=== PATIENT | female | born 1960 | race Caucasian/White ===

== ENCOUNTER 2023-10-11 15:16 | Emergency (ER) | payer SELFPAY ==
[2023-10-11] MEDS ORDERED: TDAP (DIPHTH,PERTUSS(ACELL),TET VAC) 0.5 ML VIAL IMVAC ONE (16:10)
[2023-10-11 16:38] LABS: Absolute Basophils 0.1 K/uL (0-0.5); Absolute Lymphocytes (CBC) 1.8 K/uL (0.7-4.9); Absolute Monocytes 0.5 K/uL (0.1-1.3); Absolute Neutrophil 4.7 K/uL (1.8-8.0); Basophils % 0.9 % (0-1.3); Eosinophils % 0.6 % (0-4.4); Hematocrit 47.3 % (36.0-45.0); Hemoglobin 14.9 g/dL (12.0-15.0); Lymphocytes % 24.9 % (15.3-44.8); MCH 27.5 pg (27.0-35.0); MCHC 31.5 g/dL (32.0-36.0); MCV 87.4 fL (80-100); MPV 10.8 fL (7.6-11.3); Monocytes % 6.5 % (3.3-12.3); Neutrophils % 67.1 % (41.7-73.7); Platelets 192 thou/uL (152-406); RBC Red Blood Cell Count 5.42 M/uL (3.86-4.86)
[2023-10-11 16:41] LABS: PT Prothrombin Time 10.9 SECONDS (9.4-12.5); Protime INR 0.97
--- NOTE | 2023-10-11 16:55 | RAD REPORT ---
EXAM DESCRIPTION: [place] Single View10/11/2023 4:45 pm CLINICAL HISTORY: Chest pain COMPARISON: none FINDINGS: The lungs appear clear of acute infiltrate. The heart is normal size IMPRESSION: No acute abnormalities displayed
[2023-10-11 16:57] LABS: ALT/SGPT 41 U/L (13-56); AST/SGOT 22 U/L (15-37); Albumin 3.1 g/dL (3.4-5.0); Albumin/Globulin Ratio 0.9 (1.1-1.8); Alkaline Phosphatase 91 U/L (45-117); Anion Gap 10.9 mEq/L (5.0-15.0); BUN Blood Urea Nitrogen 8 mg/dL (7-18); Bicarbonate 25 mEq/L (21-32); Bilirubin Total 0.4 mg/dL (0.2-1.0); Globulin 3.6 g/dL (2.3-3.5); Glomerular Filtration Rate 84 ml/min (=/>90); Glucose Level 315 mg/dL (74-106); Magnesium 1.9 mg/dL (1.6-2.4); NT PRO-BNP 122 pg/mL (<125); Potassium 3.9 mEq/L (3.5-5.1); Protein, Total 6.7 g/dL (6.4-8.2); Sodium Level 137 mEq/L (136-145); Troponin High Sensitivity 5.6 pg/mL (<58.9)
[2023-10-11 17:00] LABS: Bilirubin Direct < 0.2 mg/dL (0-0.2); Bilirubin Indirect, Calculated 0.2 mg/dL (0.2-0.8)
--- NOTE | 2023-10-11 17:41 | RAD REPORT ---
EXAM DESCRIPTION: CT - Head C Spine Mpr Wo Con - 10/11/2023 4:51 pm CLINICAL HISTORY: Left sided weakness. Tremors COMPARISON: None. TECHNIQUE: Computed axial tomography of the head and cervical spine was obtained. Sagittal and coronal reconstruction was performed. All CT scans are performed using dose optimization technique as appropriate and may include automated exposure control or mA/KV adjustment according to patient size. FINDINGS: An intracranial bleed is not seen. The ventricles are normal in caliber. 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 Corpus callosum is not we ll visualized which could be secondary to hypoplasia No significant hypodensity within the brain. An extra-axial fluid collection is not noted. Fluid within the visualized sinuses and mastoids is not seen Evaluation of the mid cervical spine extremely limited secondary to motion artifact No fracture visualized. Spondylosis C4-5 not well evaluated secondary to patient motion artifact Prominent disc osteophyte complex C5-6 results in compression upon the right aspect spinal cord. Stefano ed narrowing of the neural foramina bilaterally Prominent disc osteophyte complex C6-7 narrows thecal sac to 6 millimeters. IMPRESSION: No acute intracranial abnormality is seen. A cervical fracture is not visualized. 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 Further evaluation with nonemergent MRI may be helpful for further evaluation
--- NOTE | 2023-10-11 18:43 | ER ---
Nurse's Notes [facility] Name: Karyna Adames Age: 63 yrs Sex: Female : 1960 Arrival Date: 10/11/2023 Time: 15:16 Bed 8 Private MD: Diagnosis: Cervical disc disorder with radiculopathy;Weakness-Left Arm and Left Leg;Tremor, unspecified;Leg Laceration/ Open wound of lower leg;Hyperglycemia, unspecified Presentation: 10/10 15:25 Chief complaint: Patient states: stepped on a chainsaw 09/26/24 and did not receive a tm6 tetanus shot on the right foot. Now left foot swollen and painful, has tremors and can't put weight on it. Left sided weakness x1 week. Ebola Screen: Patient negative for fever greater than or equal to 101.5 degrees Fahrenheit, and additional compatible Ebola Virus Disease symptoms Patient denies exposure to infectious person. Patient denies travel to an Ebola-affected area in the 21 days before illness onset. No symptoms or risks identified at this time. Risk Assessment: Do you want to hurt yourself or someone else? Patient reports no desire to harm self or others. 15:25 Method Of Arrival: Wheelchair tm6 15:25 Acuity: MERYL 3 tm6 15:27 Chief complaint:. tm6 15:27 Coronavirus screen: Vaccine status: Patient reports receiving the 2nd dose of the covid tm6 vaccine. Initial Sepsis Screen: Does the patient meet any 2 criteria? No. Patient's initial sepsis screen is negative. Does the patient have a suspected source of infection? No. Patient's initial sepsis screen is negative. Onset of symptoms was September 27, 2023. Triage Assessment: 15:33 General: Appears in no apparent distress. Behavior is calm, cooperative. Pain: tm6 Complains of pain in left foot Pain currently is 0 out of 10 on a pain scale. at worst was 8 out of 10 on a pain scale. Is intermittent. EENT: No signs and/or symptoms were reported regarding the EENT system. Neuro: Level of Consciousness is awake, alert, obeys commands, Oriented to person, place, time, situation, Reports weakness in left arm and left leg since 1-2 weeks ago. Cardiovascular: Patient's skin is warm and dry. Respiratory: Airway is patent Respiratory effort is even, unlabored, Respiratory pattern is regular, symmetrical. GI: No signs and/or symptoms were reported involving the gastrointestinal system. Abdomen is round non-distended. : No signs and/or symptoms were reported regarding the genitourinary system. Derm: No signs and/or symptoms reported regarding the dermatologic system. Musculoskeletal: Reports weakness in left arm and left leg pain in left foot. Historical: - Allergies: 15:33 No Known Allergies; tm6 - PMHx: 15:33 None; tm6 - PSHx: 15:33 tubal ligation; tm6 - Immunization history:: Client reports receiving the 2nd dose of the Covid vaccine. - Infectious Disease History:: Denies. - Social history:: Smoking status: Patient reports the use of cigarette tobacco products, smokes one-half pack cigarettes per day, Patient/guardian denies using alcohol. Screenin:33 [facility] ED Fall Risk Assessment (Adult) History of falling in the last 3 months, db including since admission No falls in past 3 months (0 pts) Confusion or Disorientation No (0 pts) Intoxicated or Sedated No (0 pts) Impaired Gait No (0 pts) Mobility Assist Device Used No (0 pt) Altered Elimination No (0 pt) Score/Fall Risk Level 0 - 2 = Low Risk Oriented to surroundings, Maintained a safe environment. Abuse screen: Denies threats or abuse. Denies injuries from another. Nutritional screening: No deficits noted. Tuberculosis screening: No symptoms or risk factors identified. Assessment: 16:20 Reassessment: Patient appears in no apparent distress at this time. Patient and/or db family updated on plan of care and expected duration. Pain level reassessed. Patient is alert, oriented x 3, equal unlabored respirations, skin warm/dry/pink. RIGHT LEG WOUND. General: Appears in no apparent distress. comfortable, Behavior is calm, cooperative. Pain: Complains of pain in right leg and left leg. Neuro: Level of Consciousness is awake, alert, obeys commands, Oriented to person, place, time, situation. Respiratory: Airway is patent Respiratory effort is even, unlabored, Respiratory pattern is regular, symmetrical. 18:30 Reassessment: Patient appears in no apparent distress at this time. Patient and/or db family updated on plan of care and expected duration. Pain level reassessed. Patient is alert, oriented x 3, equal unlabored respirations, skin warm/dry/pink. Patient states feeling better. Patient states symptoms have improved. Vital Signs: 15:27 BP 157 / 101; Pulse 87; Resp 19; Temp 98.4(TE); Pulse Ox 99% on R/A; Weight 113.4 kg; tm6 Height 5 ft. 5 in. ; Pain 0/10; 18:36 BP 184 / 86; Pulse 82; Resp 16; Pulse Ox 99% on R/A; db 15:27 Body Mass Index 41.60 (113.40 kg, 165.1 cm) tm6 15:27 Pain Scale: Adult tm6 ED Course: 15:19 Patient arrived in ED. mr 15:21 Ashkan Nieves PA is PHCP. cp 15:21 Carlos Dc MD is Attending Physician. cp 15:26 Triage completed. tm6 15:33 Arm band placed on right wrist. tm6 16:22 EKG done. db 16:28 Initial lab(s) drawn, by me, sent to lab. Inserted saline lock: 20 gauge in right db antecubital area, using aseptic technique. Blood collected. Flushed with 10 mL NS. 16:47 XRAY Chest (1 view) In Process Unspecified. EDMS 16:53 CT Head C Spine In Process Unspecified. EDMS 18:41 Hany Young MD is Referral Physician. cp 19:03 Yeimi Denny, RN is Primary Nurse. db 19:05 Patient has correct armband on for positive identification. Bed in low position. Call db light in reach. Side rails up X 1. Provided Education on: DISCHARGE. personnel monitor on. Pulse ox on. NIBP on. Warm blanket given. Pillow given. 19:05 No provider procedures requiring assistance completed. IV discontinued, intact, db bleeding controlled, No redness/swelling at site. Administered Medications: 16:24 Drug: Boostrix Tdap IM 0.5 ml IM once; as a single dose Route: IM; Site: right deltoid; db 18:30 Follow up: Response: (VIS) Vaccine information sheet provided today. Questions and/or db concerns addressed. VIS edition date: Sep 17, 2020.; No adverse reaction Medication: 19:05 Vaccine Information Statement (VIS) provided today. Questions and/or concerns db addressed. VIS edition date: September 17, 2020. Outcome: 18:43 Discharge ordered by . cp 19:05 Discharged to home via wheelchair, with family, db 19:05 Condition: stable 19:05 Discharge instructions given to patient, Instructed on discharge instructions, follow up and referral plans. Prescriptions given X 3, 19:07 Patient left the ED. db Signatures: Dispatcher [employer] EDMS Hanane Hernadez, Reg Reg mr Ashkan Nieves, Yeimi Teran cp, RN RN Luis E Linda RN RN tm6 Corrections: (The following items were deleted from the chart) 15:28 15:25 Chief complaint: Patient states: stepped on a chainsaw and did not receive a tm6 tetanus shot. Left foot swollen and painful tm6
--- NOTE | 2023-10-11 18:43 | EDPHYS ---
Physician Documentation [facility] Name: Karyna Adames Age: 63 yrs Sex: Female : 1960 Arrival Date: 10/11/2023 Time: 15:16 Bed 8 Private MD: ED Physician Carlos Dc HPI: 10/10 15:35 This 63 yrs old Female presents to ER via Wheelchair with complaints of Left Side of cp Body Weakness. 15:35 The patient's problem is reported as weakness, in the left upper extremity, in the left cp lower extremity, tremor of left leg. Onset: The symptoms/episode began/occurred 10 day(s) ago. 15:35 Associated signs and symptoms: Pertinent negatives: abdominal pain, chest pain, cp headache, numbness, palpitations. Patient's baseline: Neuro: alert and fully oriented, Motor: no deficits, Ambulation: walks without assistance, Speech: normal. 15:35 Patient is a 63-year-old female who presents to emergency department and reports that cp about 2 weeks ago she fell onto a chainsaw causing a wound to her right lower leg and right foot. She subsequently followed up with her family physician and was not given a tetanus shot as she was also seen in the emergency department. reports about 3 days later after the injury she complained of left side weakness. She presents today with complaints of left arm weakness and trembling of her left leg. She denies any numbness. Historical: - Allergies: 15:33 No Known Allergies; tm6 - PMHx: 15:33 None; tm6 - PSHx: 15:33 tubal ligation; tm6 - Immunization history:: Client reports receiving the 2nd dose of the Covid vaccine. - Infectious Disease History:: Denies. - Social history:: Smoking status: Patient reports the use of cigarette tobacco products, smokes one-half pack cigarettes per day, Patient/guardian denies using alcohol. ROS: 15:40 Cardiovascular: Negative for chest pain, edema, palpitations, cp 15:40 Constitutional: HX per HPI cp 15:40 Constitutional: Negative for body aches, chills, fever, poor PO intake, 15:40 Respiratory: Negative for cough, shortness of breath, wheezing, 15:40 Abdomen/GI: Negative for abdominal pain, nausea, vomiting, and diarrhea, 15:40 Neuro: Positive for weakness, Negative for altered mental status, 15:40 All other systems are negative, cp Exam: 15:45 Constitutional: The patient appears in no acute distress, alert, awake, cp non-diaphoretic, non-toxic, well developed, well nourished, anxious, 15:45 Head/Face: Normocephalic, atraumatic. cp 15:45 Eyes: Periorbital structures: appear normal, Pupils: equal, round, and reactive to light and accomodation, Extraocular movements: intact throughout, Conjunctiva: normal, no exudate, no injection, Sclera: no appreciated abnormality, Lids and lashes: appear normal, bilaterally, 15:45 ENT: External ear(s): are unremarkable, Nose: is normal, Mouth: Lips: moist, Oral mucosa: moist, Posterior pharynx: Airway: no evidence of obstruction, patent, 15:45 Neck: ROM/movement: pain, that is mild, with any movement, limited range of motion, is not appreciated, 15:45 Chest/axilla: Inspection: normal, Palpation: is normal, no crepitus, no tenderness, 15:45 Cardiovascular: Rate: normal, Rhythm: regular, Edema: is not appreciated, JVD: is not appreciated, 15:45 Respiratory: the patient does not display signs of respiratory distress, Respirations: normal, no use of accessory muscles, no retractions, labored breathing, is not present, Breath sounds: are clear throughout, no decreased breath sounds, no stridor, no wheezing, 15:45 Abdomen/GI: Exam negative for discomfort, distension, guarding, Inspection: abdomen appears normal, 15:45 Back: pain, is absent, ROM is normal, 15:45 Neuro: Orientation: to person, place \T\ time. Mentation: is normal, Motor: moves all fours, no focal deficits, Sensation: no obvious gross deficits, 16:27 ECG was reviewed by the Attending Physician. cp 18:30 Radiologist reports: report reviewed cp Vital Signs: 15:27 BP 157 / 101; Pulse 87; Resp 19; Temp 98.4(TE); Pulse Ox 99% on R/A; Weight 113.4 kg; tm6 Height 5 ft. 5 in. ; Pain 0/10; 18:36 BP 184 / 86; Pulse 82; Resp 16; Pulse Ox 99% on R/A; db 15:27 Body Mass Index 41.60 (113.40 kg, 165.1 cm) tm6 15:27 Pain Scale: Adult tm6 MDM: 15:37 Patient medically screened. 18:42 Data reviewed: vital signs, nurses notes, lab test result(s), EKG, radiologic studies, cp CT scan, I have discussed the patient's presentation/case with the attending Emergency Department Physician;. 18:42 Counseling: I had a detailed discussion with the patient and/or guardian regarding the cp historical points, exam findings, and any diagnostic results supporting the discharge/admit diagnosis, lab results, radiology results, the need to transfer to another facility, [facility] does not immediately have the required specialist. Refusal of service: The patient/guardian displays adequate decision making capability and despite a detailed discussion of alternatives, benefits, risks, and consequences refuses: transfer for neurosurgery evaluation. patient requesting discharge to f/u outpatient. 10/10 15:33 Order name: Basic Metabolic Panel; Complete Time: 17:02 10/10 17:02 Interpretation: Normal except: GLUC 315; GFR 84. 10/10 15:33 Order name: CBC with Diff; Complete Time: 17:02 10/10 17:02 Interpretation: Normal except: RBC 5.42; HCT 47.3; MCHC 31.5. 10/10 15:33 Order name: LFT's; Complete Time: 17:02 10/10 17:02 Interpretation: Normal except: ALB 3.1; GLOB 3.6; A/G 0.9. 10/10 15:33 Order name: Magnesium; Complete Time: 17:02 10/10 15:33 Order name: NT PRO-BNP; Complete Time: 17:02 10/10 15:33 Order name: PT-INR; Complete Time: 17:02 10/10 15:33 Order name: Troponin HS; Complete Time: 17:02 10/10 15:34 Order name: ETOH Level; Complete Time: 17:02 10/10 15:33 Order name: XRAY Chest (1 view) 10/10 15:33 Order name: CT Head C Spine 10/10 15:33 Order name: Cardiac monitoring; Complete Time: 16:31 10/10 15:33 Order name: EKG - Nurse/Tech; Complete Time: 16:31 cp 10/10 15:33 Order name: IV Saline Lock; Complete Time: 16: cp 10/10 15:33 Order name: Labs collected and sent; Complete Time: 16: cp 10/10 15:33 Order name: O2 Per Protocol; Complete Time: 16: cp 10/10 15:33 Order name: O2 Sat Monitoring; Complete Time: 16: cp EC: Rate is 84 beats/min. Rhythm is regular. PA interval is normal. QRS interval is normal. cp QT interval is normal. T waves are Inverted in lead aVR. Interpreted by me. Reviewed by me. Administered Medications: 16:24 Drug: Boostrix Tdap IM 0.5 ml IM once; as a single dose Route: IM; Site: right deltoid; db 18:30 Follow up: Response: (VIS) Vaccine information sheet provided today. Questions and/or db concerns addressed. VIS edition date: Sep 17, 2020.; No adverse reaction Disposition: 20:37 Co-signature as Attending Physician, Carlos Dc MD I reviewed the patient's care rn provided by the Advanced Practice Provider and agree with the diagnosis and treatment plan. Disposition Summary: 10/11/23 18:43 Discharge Ordered Notes: Location: Home cp Problem: new cp Symptoms: are unchanged cp Condition: Stable cp Diagnosis - Cervical disc disorder with radiculopathy cp - Weakness - Left Arm and Left Leg cp - Tremor, unspecified cp - Leg Laceration/ Open wound of lower leg cp - Hyperglycemia, unspecified cp Followup: cp - With: Hany Young MD - When: 2 - 3 days - Reason: Recheck today's complaints Discharge Instructions: - Discharge Summary Sheet cp - Cervical Radiculopathy cp - Hyperglycemia cp - Tremor cp - Weakness cp Forms: - Medication Reconciliation Form cp - Antibiotic Education cp - Prescription Opioid Use cp - Patient Portal Instructions cp - Leadership Thank You Letter cp Prescriptions: - diclofenac sodium 50 mg Oral tablet, delayed release (enteric coated) - take 1 tablet ORAL route every 12 hours; 20 tablet; Refills: 0, Product cp Selection Permitted - Medrol (Prateek) 4 mg Oral Tablets, Dose Pack - take 1 tablet ORAL route as directed - follow package instructions; 1 packet; cp Refills: 0, Product Selection Permitted - methocarbamol 750 mg Oral tablet - take 1 tablet ORAL route 3 times per day; 30 tablet; Refills: 0, Product cp Selection Permitted Signatures: Dispatcher [employer] EDMS Carlos Dc MD MD rn Page, Corey, PA PA cp Yeimi Denny, RN RN db Luis E Paul RN RN tm6 Corrections: (The following items were deleted from the chart) 15:34 15:34 BASIC METABOLIC PANEL+C.LAB.BRZ ordered. EDMS EDMS 15:34 15:34 CBC+H.LAB.BRZ ordered. EDMS EDMS 15:34 15:34 HEPATIC FUNCTION+C.LAB.BRZ ordered. EDMS EDMS 15:34 15:34 MAGNESIUM+C.LAB.BRZ ordered. EDMS EDMS 15:34 15:34 PROBNP+C.LAB.BRZ ordered. EDMS EDMS 15:34 15:34 PROTIME (+INR)+COAG.LAB.BRZ ordered. EDMS EDMS 15:34 15:34 Troponin High Sensitivity+C.LAB.BRZ ordered. EDMS EDMS 15:34 15:34 Chest Single View+RAD.RAD.BRZ ordered. EDMS EDMS 15:34 15:34 Head C Spine MPR Wo Con+CT.RAD.BRZ ordered. EDMS EDMS 17:04 15:35 This 63 yrs old Female presents to ER via Wheelchair with complaints of Wound cp Infection. cp 23:56 15:30 Cardiovascular: Negative for chest pain, edema, palpitations, cp cp
[2023-10-11 19:12] VITALS: TEMP 98.4; O2SAT 99
[2023-10-11 19:13] VITALS: BP 184/86
--- NOTE | 2023-10-12 14:39 | EKG ---
Test Date: 2023-10-11 Test Time: 16:21:06 [employer]aster Die [employer]: PERLA MEASUREMENT RESULTS: Intervals: Rate: 84 MD: 154 QRSD: 82 QT: 400 QTc: 472 [place]: P: 68 MD: 154 QRS: 27 T: 41 INTERPRETIVE STATEMENTS: Normal sinus rhythm Low voltage QRS Borderline ECG No previous ECG available for comparison Electronically Signed On 10-12-23 14:38:04 CDT by Leoncio Fatima
== END 2023-10-11 19:07 | disposition home or self-care (01) ==
LOC: ER 15:16
DX: M50.10 Cervical disc disorder with radiculopathy, unspecified cervical region (principal); R25.1 Tremor, unspecified; R73.9 Hyperglycemia, unspecified; S81.801A Unspecified open wound, right lower leg, initial encounter; F17.210 Nicotine dependence, cigarettes, uncomplicated
CPT/HCPCS: 36415; 70450; 71045; 72125; 80048; 80076; 82077; 83735; 83880; 84484; 85025; 85610; 93005; 96372; 99285